=== PATIENT | male | born 1980 | race Caucasian/White ===

== ENCOUNTER 2020-07-04 09:12 | Emergency (ER) | payer BC, SELFPAY ==
[2020-07-04] MEDS ORDERED: Sterile Water 10 ML ONE (10:35)
[2020-07-04] MEDS ORDERED: cefTRIAXone\\ROCEPHIN 500 MG VIAL ONE (10:35)
[2020-07-05 18:20] LABS: Chlam.trachomatis by PCR,Urine DETECTED (NotDetected)
== END 2020-07-04 10:51 | disposition home or self-care (01) ==
LOC: CSHERS 09:12
DX: Z20.2 Contact with and (suspected) exposure to infections with a predominantly sexual mode of transmission (principal); F17.210 Nicotine dependence, cigarettes, uncomplicated
CPT/HCPCS: 87491; 87591; 96372; 99283; J0696